=== PATIENT | male | born 1955 | race Caucasian/White ===

== ENCOUNTER → 2021-09-09 | Outpatient (CLI) | payer OTHER ==
[~2021-09-09] MED LIST: NORCO 7.5-3251 EACH PO; ONDANSETRON ODT4 MG SL; TORADOL 10 MG T10 MG PO
== END ==
LOC: CT 12:11
DX: R10.32 Left lower quadrant pain (principal); E11.9 Type 2 diabetes mellitus without complications; I10 Essential (primary) hypertension; K57.30 Diverticulosis of large intestine without perforation or abscess without bleeding; K40.90 Unilateral inguinal hernia, without obstruction or gangrene, not specified as recurrent; K76.0 Fatty (change of) liver, not elsewhere classified; I72.8 Aneurysm of other specified arteries
CPT/HCPCS: 36415; 82565; 84520; Q9967